=== PATIENT | female | born 2000 | race Caucasian/White ===

== ENCOUNTER 2022-03-15 02:29 | Emergency (ER) | payer MEDICAID ==
[~2022-03-15] VITALS: Ht 182.9 cm; Wt 90.9 kg
[2022-03-15 02:56] VITALS: TEMP 98.5
[2022-03-15] MEDS ORDERED: AMOXICILLIN875 MG PO (03:38)
[2022-03-15 04:02] VITALS: BP 121/82; PULSE 90
== END 2022-03-15 04:02 | disposition home or self-care (01) ==
LOC: COL.ER 02:29
DX: B34.9 Viral infection, unspecified (principal); H66.93 Otitis media, unspecified, bilateral; Z20.822 Contact with and (suspected) exposure to COVID-19